=== PATIENT | male | born 1980 | race African-American/Black ===

== ENCOUNTER 2017-07-28 20:12 | Emergency (ER) | payer MEDICAID ==
[~2017-07-28] VITALS: Ht 175.3 cm; Wt 59.0 kg
[2017-07-28 20:19] VITALS: BP_SYST 134
[2017-07-28] MEDS ORDERED: GASTROGRAFIN 120 ML ONE (22:44)
[2017-07-28 23:26] VITALS: BP_SYST 131
== END 2017-07-28 23:26 | disposition home or self-care (01) ==
LOC: SED 20:12
DX: K94.23 Gastrostomy malfunction (principal); Z86.73 Personal history of transient ischemic attack (TIA), and cerebral infarction without residual deficits; Z98.890 Other specified postprocedural states
CPT/HCPCS: 43760; 74240; 99284; Q9963

== ENCOUNTER 2017-08-10 10:25 | Emergency (ER) | payer MEDICAID ==
[~2017-08-10] VITALS: Ht 172.7 cm; Wt 59.0 kg
[2017-08-10 10:25] VITALS: BP_SYST 136
[2017-08-10 13:25] VITALS: BP_SYST 130
== END 2017-08-10 13:25 | disposition home or self-care (01) ==
LOC: SED 10:25
DX: K94.23 Gastrostomy malfunction (principal); G80.9 Cerebral palsy, unspecified; Z86.73 Personal history of transient ischemic attack (TIA), and cerebral infarction without residual deficits
CPT/HCPCS: 99284